=== PATIENT | male | born 1955 | race Caucasian/White ===

== ENCOUNTER → 2019-02-11 | Outpatient (CLI) | payer SELFPAY ==
[2019-02-11 14:41] LABS: HGB 14.9 gm/dL (13.0-17.5); MCHC 33.8 g/dL (31.0-37.0); MCV 91.8 fL (80.0-100.0); Mean Platelet Volume 6.8; Platelet Count 329 k/uL (150-450); RDW 12.4 % (11.5-15.5); WBC 6.3 k/uL (3.8-10.6)
--- NOTE | 2019-02-11 14:56 | XR ---
EXAMINATION TYPE: XR chest 2V DATE OF EXAM: 02/11/2019 COMPARISON: NONE TECHNIQUE: PA and lateral views submitted. HISTORY: Pain FINDINGS: The lungs are clear and there is no pneumothorax, pleural effusion, or focal pneumonia. No overt fa ilure. Arthropathy shoulders. Hypertrophic degenerative changes spine. IMPRESSION: 1. No acute process.
== END | disposition home or self-care (01) ==
LOC: LABWHC1 14:00
PROVIDERS: ATTEND Family Medicine
DX: E11.9 Type 2 diabetes mellitus without complications (principal); E03.9 Hypothyroidism, unspecified; M54.2 Cervicalgia; B99.9 Unspecified infectious disease; R01.1 Cardiac murmur, unspecified
CPT/HCPCS: 36415; 71046; 83036; 84443; 85027; 93005

== ENCOUNTER → 2020-10-17 | Outpatient (CLI) | payer MEDICARE | END | disposition home or self-care (01) | LOC: LABWHC1 10:28 | PROVIDERS: ATTEND Family Medicine | DX: I51.9 Heart disease, unspecified (principal) | CPT/HCPCS: 36415; 93005 ==

== ENCOUNTER → 2020-11-16 | Outpatient (CLI) | payer MEDICARE ==
--- NOTE | 2020-11-16 10:16 | US ---
EXAMINATION TYPE: US duplex aorta DATE OF EXAM: 11/16/2020 COMPARISON: NONE CLINICAL HISTORY: Z87.891 Personal history of tobacco use;I71 aortic. EXAM MEASUREMENTS: Abdominal Aorta: Proximal: 2.4 x 2.4cm Mid: 1.8 x 1.9cm Distal: 1.8 x 2.1cm Right Iliac: 1.0 x 0.9cm Left Iliac: 1.0 x 0.9cm No AAA seen IMPRESSION: No evidence for aneurysm at this time.
== END | disposition home or self-care (01) ==
LOC: RADUSWWP 09:36
PROVIDERS: ATTEND Family Medicine
DX: Z87.891 Personal history of nicotine dependence (principal)
CPT/HCPCS: 93979

== ENCOUNTER → 2024-07-02 | Outpatient (CLI) | payer MEDICARE ==
--- NOTE | 2024-07-02 14:02 | CA ---
Exercise Stress Test Report Name: Murphy Ernandez Exam Date: 07/02/2024 12:05 Exam Location: [place] Stress Ht (in): 66 Wt (lb): 176 BSA: 1.89 Ordering Phys: George Ortiz MD Referring Phys: JAYSON Technologist: JOMAR ESCOBAR Age: 69 Gender: M : 1955 Procedure CPT: Indications: R07.9 CHEST PAIN, UNSPECIFIED ICD-10 Codes: Patient History: CHEST PAIN, FAMILY HX OF HEART DISEASE Medications: NONE,,, Meds past 24 hrs: Pretest Chest Pain: STRESS TEST Mauricio Protocol Exercise Duration (min:sec): 05:[address] Depressions (mm): Angina Score: Briscoe Score: Resting HR (bpm): 72 Peak HR (bpm): 130 Resting BP (mmHg): 176 / 81 Peak BP (mmHg): 176 / 81 MPHR: 150 Target HR: 128 % MPHR: 87 METS: 7.1 Total Dose: Peak Dose: Atropine: Double Product: 30407 BP Response: Stress Termination: TARGET HR REACHED/MAX EXERTION Stress Symptoms: LUMP IN THROAT Stress Summary: ECG ANALYSIS Resting ECG: Stress ECG: CONCLUSIONS Patient underwent exercise stress EKG with a Mauricio protocol treadmill stress test. Patient exercised into Stage 2 for a total of 5 minutes and 2 seconds reaching a total of 7.1 METS. Patient's maximum heart rate was 130 which represented 86% age- predicted maximum heart rate. Stress EKG findings: At baseline patient's EKG showed normal sinus rhythm, normal axis, diffuse ST depressions and T wave inversions in the inferior leads as well as 1, V4 through V6.. At peak exercise, EKG showed no significant change from baseline. Conclusions: 1. Nonspecific stress EKG portion secondary to baseline EKG abnormalities. Consider stress testing with imaging modality. 2. Fair exercise capacity. 3. Throat pain noted with exertion. Clinical correlation recommended. Dr. Ramiro Block DO (Electronically Signed) Final Date: 02 July 2024 14:01
== END | disposition home or self-care (01) ==
LOC: RADNMMAIN 11:18
PROVIDERS: ATTEND Family Medicine
DX: R94.31 Abnormal electrocardiogram [ECG] [EKG] (principal); R07.0 Pain in throat
CPT/HCPCS: 93017

== ENCOUNTER 2024-09-09 08:34 | Day surgery (SDC) | payer MEDICARE ==
[~2024-09-09 08:34] MED LIST: ALPRAZolam 0.25 MG TAB PO PRN; NITROGLYCERIN SL TABS 0.4 MG TAB SUBLINGUAL PRN
[2024-09-09] MEDS: SODIUM CHLORIDE 0.9% 1,000 ML in EMPTY BAG 1 BAG IV SCH (09:17)
[2024-09-09] MEDS: ASPIRIN 325 MG TAB PO ONE (09:17)
[2024-09-09] MEDS: ALPRAZolam 0.5 MG TAB PO PRN (09:24)
[2024-09-09 09:41] LABS: Basophils # (A) 0.08 10*3/uL (0.00-0.10); Basophils % (A) 1.2 %; Eosinophils # (A) 0.20 10*3/uL (0.04-0.35); Eosinophils % (A) 2.9 %; HCT 43.0 % (39.6-50.0); HGB 15.2 g/dL (13.0-17.0); Lymphocytes # (A) 1.94 10*3/uL (0.90-5.00); Lymphocytes % (A) 28.4 %; MCH 31.3 pg (27.0-32.0); MCHC 35.3 g/dL (32.0-37.0); MCV 88.7 fL (80.0-97.0); Monocytes # (A) 0.80 10*3/uL (0.20-1.00); Monocytes % (A) 11.7 %; Neutrophils # (A) 3.78 10*3/uL (1.80-7.70); Neutrophils % (A) 55.5 %; Platelet Count 238 10*3/uL (140-440); RBC 4.85 10*6/uL (4.40-5.60); RDW 12.4 % (11.5-14.5); WBC 6.82 10*3/uL (4.50-10.00)
[2024-09-09] MEDS: IV FLUID CONTINUATION 1,000 ML IV ONE (09:42)
[2024-09-09 09:52] VITALS: RESP 16; TEMP 97.7
[2024-09-09 09:52] LABS: African American GFR (CKD) >90 (>60 ml/min/1.73 sqM); Anion Gap 10 mmol/L; Blood Urea Nitrogen 14 mg/dL (9-20); Calcium 9.3 mg/dL (8.4-10.2); Carbon Dioxide 24 mmol/L (22-30); Chloride 106 mmol/L (98-107); Glucose 124 mg/dL (74-99); Non-African American GFR(CKD) >90 (>60 ml/min/1.73 sqM); Potassium 4.2 mmol/L (3.5-5.1); Sodium 140 mmol/L (137-145)
[2024-09-09] MEDS: HEPARIN SODIUM,PORCINE (1 ML) 2,500 UNIT in SODIUM CHLORIDE 0.9% 250 ML IRRIGATION PRN (10:07)
[2024-09-09] MEDS: HEPARIN SODIUM,PORCINE 10,000 UNIT in SODIUM CHLORIDE 0.9% 1,000 ML IRRIGATION PRN (10:07)
[2024-09-09] MEDS: MIDAZOLAM 2 MG/2 ML VIAL IVP ONE (10:53)
[2024-09-09] MEDS: fentaNYL (PF) 50 MCG/ML 2 ML AMP IVP ONE (10:53)
[2024-09-09] MEDS: LIDOCAINE 1% INJ 10MG/ML (20 ML MDV) SQ ONE (10:55)
[2024-09-09] MEDS: VERAPAMIL SYRINGE (5 MG/10 ML) INTRAARTER ONE (10:56)
[2024-09-09] MEDS: HEPARIN SODIUM 1,000 UN/ML (10ML VL) IVP ONE (10:59)
[2024-09-09] MEDS: IOPAMIDOL-370 100ML BTL INJ ONE ×2 (11:43→11:44)
[2024-09-09 12:54] VITALS: PULSE 68
[2024-09-09] MEDS: SODIUM CHLORIDE 0.9% 500 ML 500 ML IV ONE (14:00)
[2024-09-09 15:30] VITALS: BP 160/82
--- NOTE | 2024-09-11 10:50 | P.CARDCATH ---
Description of Procedure: PROCEDURES PERFORMED: Left heart catheterization, bilateral coronary angiography, ultrasound guided arterial access, IFR RCA, OM1, LAD INDICATION: Aortic stenosis, angina near card association class III symptoms CONSENT:I have discussed the risks, benefits and alternative therapies for the above-mentioned procedure and for both sedation/analgesia as well as necessary blood product administration, if indicated, as they pertain to this patient. The patient has indicated understanding and acceptance of the risks and procedures discussed. PROCEDURE: After the risks, benefits and alternatives of the above mentioned procedure explained in detail with the patient, informed consent was obtained. Patient was taken to the catheterization lab and prepped and draped in usual fashion. Ultrasound guidance was used to assess for arterial access. 1% lidocaine was used to anesthetize the right radial artery. A 6-Bangladeshi sheath was placed in the right radial artery using modified Seldinger technique and ultrasound guidance. Left coronary angiography was performed with a 6-Bangladeshi CLS 4.5 catheter and right coronary angiography was performed with a 5-Bangladeshi AR2 catheter in various views. A 5-Bangladeshi AR2 catheter was inserted into the left ventricle with some difficulty with the help of a straight wire and pressure measurements were obtained. The decision was made to perform functional assessment of the RCA, OM1 and LAD. Heparin was given. Using the AR-2 catheter, a pressure wire was inserted into the proximal RCA and no rmalized. It was then advanced into the mid to distal RCA and IFR was performed and was normal at 0.97 likely related to not feeding large territory of myocardium. Next a 6 Bangladeshi CLS 4.5 guide was used to engage the left main. A 0.014 pressure wire was advanced into the left main and normalized. It was then advanced into the OM1 and IFR was performed and was normal at 0.99. Next the wire was repositioned into the mid to distal LAD and IFR again was performed and was abnormal at 0.81. The right radial sheath was removed and a TR band was placed with hemostasis achieved. The patient tolerated the procedure well. Patient was transported back to the post catheterization holding area in stable condition. Conscious Sedation: Patient was monitored under the direct supervision of myself for conscious sedation using Versed and fentanyl for a total duration of 49 minutes HEMODYNAMICS: LV: 219/15, LVEDP 35 Aortic 154/71, mean gradient 53 mmHg across the valve SELECTIVE CORONARY ARTERIOGRAPHY: LEFT MAIN: The left main is a large caliber vessel which bifurcates into the LAD and circumflex. There is no significant stenosis. LEFT ANTERIOR DESCENDING CORONARY ARTERY: LAD is a large caliber vessel which wraps around to the apex. There is diffuse mild 30 to 40% proximal LAD stenosis. The mid LAD has diffuse 20 to 30% stenosis with more focal 70% mid LAD stenosis. The distal and apical LAD appears to have mild luminal irregularities. Diagonal 1 is moderate caliber with proximal 50 to 60% stenosis. LEFT CIRCUMFLEX CORONARY ARTERY: Left circumflex is a large caliber vessel that gives off the PDA and is the dominant vessel. OM1 is moderate caliber with proximal 50 to 60% stenosis. OM 2 appears normal and PDA appears normal with mild luminal irregularities RIGHT CORONARY ARTERY: The right coronary artery is a small caliber vessel which gives off an acute marginal branch and is nondominant. There is a mid RCA 70 to 80% stenosis. FINAL IMPRESSION: 1. CAD as described above including 30 to 40% proximal LAD, 70% mid LAD, 50 to 60% diagonal 1, 50 to 60% OM1, 70 to 80% mid RCA nondominant 2. Significantly elevated left sided filling pressures 3. Severe aortic stenosis with mean gradient 53 mm across the valve 4. Normal IFR OM1 and RCA and abnormal IFR LAD PLAN: 1. Aggressive risk factor modification per most recent ACC/AHA guidelines. 2. Evaluate for aortic valve replacement and possible bypass
== END 2024-09-09 15:31 | disposition home or self-care (01) ==
LOC: CATHCVL 08:34
PROVIDERS: ATTEND Internal Medicine
DX: I25.119 Atherosclerotic heart disease of native coronary artery with unspecified angina pectoris (principal); I35.0 Nonrheumatic aortic (valve) stenosis; R94.31 Abnormal electrocardiogram [ECG] [EKG]
CPT/HCPCS: 93458; 93799; 80048; 85025; 99152; 99153; C1769 ×4; C1894; C1887; J2250; J1644 ×3; J2003; J3010; Q9967